=== PATIENT | female | born 1970 | race Caucasian/White ===

== ENCOUNTER 2018-11-22 17:00 | Inpatient (IN) ==
[2018-11-22 17:25] LABS: Hemoglobin 12.9 gm/dL (12.5-16.0); Mean Cell Volume 89.2 fl (78-100); Mean Corpuscular Hemoglobin 29.5 pg (27-31); Mean Corpuscular Hgb Conc 33.1 g/dl (32-36); Mean Platelet Volume 9.6 fl (8-12.5); Neutrophil # 10.6 K/mm3 (1.3-6.0); Neutrophil % 85.3 % (42-75.0); Platelet Count 275 K/mm3 (150-450); Red Blood Count 4.37 M/mm3 (4.2-5.4); Red Cell Distribution Width 12.3 % (11.5-14.0); White Blood Count 12.4 K/mm3 (4.0-10.5)
[2018-11-22 17:38] LABS: Anion Gap 11.4 mmol/L (6.8-13.8); BUN/Creatinine Ratio 16.4 (9.0-21.6); Bilirubin, Total 1.2 mg/dL (0.0-1.1); Ca. Corrected For Albumin 8.8 mg/dL (8.4-10.2); Calcium * 9.1 mg/dL (7.9-10.9); Carbon Dioxide 28.3 mmol/L (24-32.6); Potassium 3.7 mmol/L (3.4-4.6); Total Protein 8.6 gm/dL (6.2-8.2)
[2018-11-22] MEDS ORDERED: KETOROLAC TROMETHAMINE 30 MG/ML VIAL IV ONE (17:40)
[2018-11-22] MEDS ORDERED: NORMAL SALINE 1,000 ML IV PRN (17:40)
[2018-11-22] MEDS ORDERED: ONDANSETRON HCL/PF 2 MG/ML VIAL IV ONE (17:40)
--- NOTE | 2018-11-22 17:55 | ERNOTE ---
Abdominal HPI - Narrative Date of Service: 11/22/18 - General Chief Complaint: Abdominal Pain Time Seen by Provider: 11/22/18 17:30 Source: patient, RN notes reviewed, past records Exam Limitations: no limitations - Immun/Allergies/Home Medications Immunizatons: IMMUNIZATION HX Immunizations Up to Date Yes History of Influenza Vaccine No Hx Pneumococcal Vaccination No Allergies/Adverse Reactions: Allergies morphine Adverse Reaction (Mild, Verified 11/22/18 17:06) Nausea promethazine HCl [From Phenergan] Adverse Reaction (Mild, Verified 11/22/18 17:06) feel funny Home Medications: HOME MEDICATIONS Levonorgestrel [Mirena] 1 ea IY ONCE 06/08/18 [Last Taken Unknown] acetaminophen 500 mg tablet 1,000 mg PO Q6H PRN tab 08/31/18 [Last Taken Unknown] tramadol 50 mg tablet 50 mg PO Q6H PRN tab 08/31/18 [Last Taken Unknown] Prochlorperazine 25 mg RC BID PRN 11/22/18 [Last Taken Unknown] - History of Present Illness Narrative: Iban is a 48 year old female who presents to the ED for epigastric pain that began last night. She has a history of pancreatitis. She had an ERCP at [facility] on 08/13. She is to be seen for follow up on 12/04. She has also been vomiting today. She has taken Tramadol for pain without much improvement. This is usually effective for her. She has to follow a very low fat diet to avoid having symptoms. She does not believe that she ate anything yesterday that would have caused the current episode. Timing: constant Quality: moderate, aching Activities at Onset: none Prior Abdominal Problems: Present: similar symptoms Prior Treatment: Absent: recently seen Review of Systems - Review of Systems Constitutional: Present: malaise. Absent: fever, chills EYE: Present: no symptoms reported ENT: Present: no symptoms reported Respiratory: Absent: shortness of breath, cough Cardiology: Absent: chest pain, syncope Gastrointestinal/Abdominal: Present: nausea, vomiting, abdominal pain, eating less, drinking less. Absent: diarrhea, constipation Genitourinary: Present: no symptoms reported Musculoskeletal: Absent: muscle pain, joint pain Skin: Absent: rash, lesions Neurological: Absent: headache, dizziness/light-headedness Endocrine: Present: no symptoms reported Hematologic/Lymphatic: Absent: easy bruising, easy bleeding Psych: Present: no symptoms reported Medical History (Last Reviewed 11/22/18 @ 18:11 by Elida Peters NP) Chronic headaches Onset Date: ~01/08/15 HTN (hypertension) Breast lump Onset Date: ~11/26/15 History of pancreatitis Migraine Finger injury Onset Date: Unknown Tension headache Onset Date: ~01/10/15 Surgical History: Surgical History (Last Reviewed 11/22/18 @ 18:11 by Elida Peters NP) H/O wisdom tooth extraction Onset Date: Unknown History of cholecystectomy History of pancreatic surgery S/P ERCP Family History: Family History (Last Reviewed 11/22/18 @ 18:11 by Elida Peters NP) Mother Diabetes Lupus Father Cancer Son Celiac disease Social History: Preferred Language Turkmen Do you have any caodaism or No cultural preference? Smoking Status Never smoker Abuse History No History of abuse Psych History No pertinent hx Alcohol Use none Drug Use none (This Medical Record has been edited. Action required.) No Social History Section defined Physical Exam - Physical Exam General Appearance: Present: alert, mild distress, thin Head Exam: Present: normal inspection Eye Exam: Normal inspection: bilateral Neck: Present: normal inspection, nontender, supple Respiratory: Present: no respiratory distress, normal breath sounds, no accessory muscle use, lungs clear Cardiovascular/Chest: Present: regular rate, rhythm, no murmur Gastrointestinal/Abdominal: Present: normal bowel sounds, nondistended, soft, tenderness - moderate, epigastric Back Exam: Present: normal inspection, normal range of motion Extremity Exam: Present: normal inspection, no edema Neurological Exam: Present: alert, oriented, normal mood/affect, no motor/sensory deficits Skin Exam: Present: normal color, warm/dry Progress - Results and Orders Patient's Lab Results:: I have reviewed the patient's lab results. - Vital Signs Patient's Vital Signs:: I have reviewed the patient's vital signs. Vital Signs: Vital Signs 11/22/18 17:03 11/22/18 17:06 Temperature 37.0 C 37.0 C Pulse Rate 76 76 Respiratory Rate 17 17 Blood Pressure 152/83 H 152/83 H O2 Sat by Pulse Oximetry 100 100 - Progress/Reassessment Chief Complaint: Abdominal Pain Progress:: Improved Plan - Plan Plan: Amylase is over 3000, Lipase result is unavailable d/t the level being so high that the specimen has required dilution several times. WBC is mildly elevated. Toradol and Zofran were given with good results. She is getting her second liter of IV fluid. Dr. Russ was contacted. The patient will be admitted to observation. She will be NPO and receiving IV fluids, as well as medication as needed for pain/nausea. Departure Clinical Impression: Pancreatitis Qualifiers: Chronicity: acute Pancreatitis type: unspecified pancreatitis type Acute pancreatitis complication: unspecified Qualified Code(s): K85.90 - Acute pancreatitis without necrosis or infection, unspecified - Departure Disposition: Still a patient Condition: Stable
[2018-11-22 18:38] LABS: Urine Bilirubin Negative (NEGATIVE); Urine Blood Negative /ul (NEGATIVE); Urine Ketone 50 mg/dL (NEGATIVE); Urine Nitrite Negative (NEGATIVE); Urine Protein 15 mg/dL (NEGATIVE); Urine Specific Gravity 1.025 SP.GR. (1.005-1.010); Urine Urobilinogen Normal (NORMAL)
[2018-11-22 18:48] LABS: Urine Appearance Clear (CLEAR); Urine Bacteria 2+; Urine Color Yellow; Urine Mucus Moderate - 2+; Urine RBC None Seen /hpf (0-5); Urine WBC None Seen /hpf (0-5)
[2018-11-22] MEDS ORDERED: NORMAL SALINE 1,000 ML IV ONE (20:31)
[2018-11-22] MEDS ORDERED: KETOROLAC TROMETHAMINE 30 MG/ML VIAL IV PRN (22:40)
[2018-11-22] MEDS: NORMAL SALINE 1,000 ML IV PRN (23:04)
[2018-11-23] MEDS: NORMAL SALINE 1,000 ML IV PRN ×3 (05:28→18:56)
[2018-11-23 13:47] LABS: Hematocrit 32.3 % (37.0-47.0); Hemoglobin 10.8 gm/dL (12.5-16.0); Mean Cell Volume 90.5 fl (78-100); Mean Corpuscular Hemoglobin 30.3 pg (27-31); Mean Corpuscular Hgb Conc 33.4 g/dl (32-36); Mean Platelet Volume 10.2 fl (8-12.5); Neutrophil # 4.7 K/mm3 (1.3-6.0); Neutrophil % 75.6 % (42-75.0); Platelet Count 214 K/mm3 (150-450); Red Blood Count 3.57 M/mm3 (4.2-5.4); Red Cell Distribution Width 12.4 % (11.5-14.0); White Blood Count 6.3 K/mm3 (4.0-10.5)
[2018-11-23 13:53] LABS: Albumin * 3.1 gm/dl (3.4-5.0); Anion Gap 14.4 mmol/L (6.8-13.8); BUN/Creatinine Ratio 18.9 (9.0-21.6); Bilirubin, Total 0.9 mg/dL (0.0-1.1); Ca. Corrected For Albumin 8.7 mg/dL (8.4-10.2); Calcium * 8.3 mg/dL (7.9-10.9); Carbon Dioxide 21.2 mmol/L (24-32.6); Potassium 3.6 mmol/L (3.4-4.6); Total Protein 6.7 gm/dL (6.2-8.2)
--- NOTE | 2018-11-23 22:09 | HP ---
Chief Complaint - Chief Complaint Date of Service: 11/23/18 Time of Service: 09:00 Chief Complaint: Abdominal Pain History of Present Illness: Iban is a 48 yo female with known history of recurrent acute pancreatitis. She follows with Dr. Mortensen at [facility]. She follows a low fat diet religiously. She is well aware of when she has acute pancreatitis and often tries to manage flares at home. She felt like she was having a flare of pancreatitis, but pain was too the point she could no longer manage at home. She presented to the [facility] ER for evaluation. Pancreatic enzymes are elevated as expected. She has no known cause to this episode. Medical History (Last Reviewed 11/22/18 @ 23:40 by Reji Blackwell RN) Chronic headaches Onset Date: ~01/08/15 HTN (hypertension) Breast lump Onset Date: ~11/26/15 History of pancreatitis Migraine Finger injury Onset Date: Unknown Tension headache Onset Date: ~01/10/15 Surgical History: Surgical History (Last Reviewed 11/22/18 @ 23:41 by Reji Blackwell RN) H/O wisdom tooth extraction Onset Date: Unknown History of cholecystectomy History of pancreatic surgery S/P ERCP Family History: Family History (Last Reviewed 11/22/18 @ 23:41 by Reji Blackwell RN) Mother Diabetes Lupus Father Cancer Son Celiac disease Social History: Patient Lives/Resources With Spouse Utilized Occupation Administration Preferred Language Citizen Of [place] Do you have any jain or Yes: Tenriism cultural preference? Smoking Status Never smoker Have you smoked in the past 12 No months Do you dip or chew tobacco No Abuse History No History of abuse Psych History No pertinent hx Alcohol Use none Drug Use none (This Medical Record has been edited. Action required.) No Social History Section defined Review Of Systems (GEN) - Review of Systems Generalized/Overall Review: Absent: Weakness, Chills, Fever EENTM: Present: No Symptoms Reported Respiratory: Absent: Cough, Shortness of Breath Cardiac: Absent: Chest Pain, Edema Abdominal: Present: Nausea, Vomiting, Abdominal Pain. Absent: Hematemesis, Constipation, Diarrhea, Melena, Bright blood from rectum Genitourinary: Present: No Symptoms Reported Musculoskeletal: Present: Back Pain Neurological: Present: No Symptoms Reported Skin: Present: No Symptoms Reported Immunizations: IMMUNIZATION HX Immunizations Up to Date Yes History of Influenza Vaccine No Hx Pneumococcal Vaccination No Allergies/Adverse Reactions: Allergies Allergy/AdvReac Type Severity Reaction Status Date / Time morphine AdvReac Mild Nausea Verified 11/22/18 17:06 promethazine HCl AdvReac Mild feel funny Verified 11/22/18 17:06 [From Phenergan] Home Medications: HOME MEDICATIONS Levonorgestrel [Mirena] 1 ea IY ONCE 06/08/18 [Last Taken Unknown] acetaminophen 500 mg tablet 1,000 mg PO Q6H PRN tab 08/31/18 [Last Taken Unk nown] tramadol 50 mg tablet 50 mg PO Q6H PRN tab 08/31/18 [Last Taken Unknown] Prochlorperazine 25 mg RC BID PRN 11/22/18 [Last Taken Unknown] Exam - Exam Vital Signs: Vital Signs - Last Taken Temp 37.2 C 11/23/18 19:19 Pulse 73 11/23/18 19:19 Resp 16 11/23/18 19:19 BP 126/88 11/23/18 19:19 Pulse Ox 97 11/23/18 19:19 Constitutional: Present: Alert, Oriented x3, Cooperative ENT Exam: Present: hearing grossly normal Eye Exam: bilateral eye: normal inspection Respiratory: Present: lungs clear, normal breath sounds Cardiovascular/Chest: Present: regular rate, rhythm, no murmur Abdomen: Present: soft, nontender, nondistended, no rebound tenderness, no hepatospenomegaly, tender - Epigastric Extremity: Present: normal inspection Skin Exam: Present: normal color, warm/dry, no cyanosis Appearance: Present: appropriate appearance, appropriate insight Eye contact: Present: cooperative, good eye contact, normal speech Thoughts: Present: normal thought pattern, no apparent hallucination Diagnostic Studies: Abnormal Lab Results 11/23/18 11/23/18 Range/Units 13:15 13:15 RBC 3.57 L (4.2-5.4) M/mm3 Hgb 10.8 L (12.5-16.0) gm/dL Hct 32.3 L (37.0-47.0) % Neutrophils % 75.6 H (42-75.0) % Lymphocytes % 19.0 L (20-51) % Lymphocytes # 1.19 L (1.5-3.5) k/mm3 Carbon Dioxide 21.2 L (24-32.6) mmol/L Anion Gap 14.4 H (6.8-13.8) mmol/L Random Glucose 63 L D (70-110) mg/dL ALT 16 L (19-67) U/L Albumin 3.1 L (3.4-5.0) gm/dl Lipase 3914 H (73-393) U/L Laboratory Results WBC 6.3 K/mm3 (4.0-10.5) D 11/23/18 13:15 RBC 3.57 M/mm3 (4.2-5.4) L 11/23/18 13:15 Hgb 10.8 gm/dL (12.5-16.0) L 11/23/18 13:15 Hct 32.3 % (37.0-47.0) L 11/23/18 13:15 MCV 90.5 fl (78-100) 11/23/18 13:15 MCH 30.3 pg (27-31) 11/23/18 13:15 MCHC 33.4 g/dl (32-36) 11/23/18 13:15 RDW 12.4 % (11.5-14.0) 11/23/18 13:15 Plt Count 214 K/mm3 (150-450) 11/23/18 13:15 MPV 10.2 fl (8-12.5) 11/23/18 13:15 Immature Gran % (Auto) 0.20 % (0.001-0.429) 11/23/18 13:15 Immature Gran # (Auto) 0.01 K/mm3 (0.000-0.0310) 11/23/18 13:15 Neutrophils % 75.6 % (42-75.0) H 11/23/18 13:15 Lymphocytes % 19.0 % (20-51) L 11/23/18 13:15 Monocytes % 4.3 % (0.0-9) 11/23/18 13:15 Eosinophils % 0.6 % (0.0-3.0) 11/23/18 13:15 Basophils % 0.3 % (0.0-1.0) 11/23/18 13:15 Nucleated RBC % 0.0 k/mm3 (0-1) 11/23/18 13:15 Neutrophils # 4.7 K/mm3 (1.3-6.0) 11/23/18 13:15 Lymphocytes # 1.19 k/mm3 (1.5-3.5) L 11/23/18 13:15 Monocytes # 0.3 k/mm3 (0.0-1.0) 11/23/18 13:15 Eosinophils # 0.0 k/mm3 (0.0-0.7) 11/23/18 13:15 Absolute Basophils 0.0 k/mm3 (0.0-0.1) 11/23/18 13:15 Sodium 138 mmol/L (132-142) 11/23/18 13:15 Plasma Sodium 137 mmol/L (130-142) 11/23/18 13:15 Potassium 3.6 mmol/L (3.4-4.6) 11/23/18 13:15 Chloride 106 mmol/L (97-106) 11/23/18 13:15 Carbon Dioxide 21.2 mmol/L (24-32.6) L 11/23/18 13:15 Anion Gap 14.4 mmol/L (6.8-13.8) H 11/23/18 13:15 BUN 10 mg/dL (3-23) 11/23/18 13:15 Creatinine 0.53 mg/dL (0.4-1.4) 11/23/18 13:15 Est GFR (Non-Af Amer) 130 mL/min (60-130) D 11/23/18 13:15 BUN/Creatinine Ratio 18.9 (9.0-21.6) 11/23/18 13:15 Random Glucose 63 mg/dL (70-110) L D 11/23/18 13:15 Calcium 8.3 mg/dL (7.9-10.9) 11/23/18 13:15 Calcium Adj for Albumin 8.7 mg/dL (8.4-10.2) 11/23/18 13:15 Total Bilirubin 0.9 mg/dL (0.0-1.1) 11/23/18 13:15 AST 19 U/L (0-48) 11/23/18 13:15 ALT 16 U/L (19-67) L 11/23/18 13:15 Alkaline Phosphatase 65 U/L (50-170) 11/23/18 13:15 Total Protein 6.7 gm/dL (6.2-8.2) 11/23/18 13:15 Albumin 3.1 gm/dl (3.4-5.0) L 11/23/18 13:15 Amylase 3147 U/L (25-115) H 11/22/18 17:19 Lipase 3914 U/L (73-393) H 11/23/18 13:15 Urine Color Yellow 11/22/18 18:25 Urine Appearance Clear (CLEAR) 11/22/18 18:25 Urine pH 6.0 pH (5.0-7.0) 11/22/18 18:25 Ur Specific [place] 1.025 SP.GR. (1.005-1.010) 11/22/18 18:25 Urine Protein 15 mg/dL (NEGATIVE) H 11/22/18 18:25 Urine Glucose (UA) Negative mg/dL (NEGATIVE) 11/22/18 18:25 Urine Ketones 50 mg/dL (NEGATIVE) 11/22/18 18:25 Urine Blood Negative /ul (NEGATIVE) 11/22/18 18:25 Urine Nitrate Negative (NEGATIVE) 11/22/18 18:25 Urine Bilirubin Negative mg/dl (NEGATIVE) 11/22/18 18:25 Prot Sulfosalicylic Acd Negative mg/dL (0) 11/22/18 18:25 Urine Urobilinogen Normal EU/dl (NORMAL) 11/22/18 18:25 Ur Leukocyte Esterase Negative /ul (NEGATIVE) 11/22/18 18:25 Urine RBC None seen /hpf (0-5) 11/22/18 18:25 Urine WBC None seen /hpf (0-5) 11/22/18 18:25 Ur Epithelial Cells Trace /hpf (0-5) 11/22/18 18:25 Urine Bacteria 2+ (NONE) H 11/22/18 18:25 Urine Mucus Moderate - 2+ (NONE) H 11/22/18 18:25 Urine Culture Comments No culture indicated 11/22/18 18:25 Assessment/Plan - Narrative Narrative: Iban is a 48 yo female with known recurrent acute pancreatitis. She is having a flare at this time. Lipase today is 27,000. She will be made NPO and give IV fluids. Will monitor enzymes. She does not want narcotics for pain control. Expect >2 days to treat pancreatitis with IV fluids before she will be able to have her diet advanced and discharged. - Assessment/Plan (1) Pancreatitis Problem: Acute Qualifiers: Chronicity: acute Pancreatitis type: unspecified pancreatitis type Acute pancreatitis complication: unspecified Qualified Code(s): K85.90 - Acute pancreatitis without necrosis or infection, unspecified
[2018-11-24] MEDS: NORMAL SALINE 1,000 ML IV PRN ×2 (02:00→08:41)
[2018-11-24 10:04] LABS: Hematocrit 33.8 % (37.0-47.0); Hemoglobin 11.1 gm/dL (12.5-16.0); Mean Cell Volume 90.6 fl (78-100); Mean Corpuscular Hemoglobin 29.8 pg (27-31); Mean Corpuscular Hgb Conc 32.8 g/dl (32-36); Mean Platelet Volume 9.8 fl (8-12.5); Neutrophil # 2.7 K/mm3 (1.3-6.0); Neutrophil % 61.4 % (42-75.0); Platelet Count 240 K/mm3 (150-450); Red Blood Count 3.73 M/mm3 (4.2-5.4); Red Cell Distribution Width 12.5 % (11.5-14.0); White Blood Count 4.3 K/mm3 (4.0-10.5)
[2018-11-24 10:12] LABS: Albumin * 3.3 gm/dl (3.4-5.0); Anion Gap 11.3 mmol/L (6.8-13.8); Bilirubin, Total 0.8 mg/dL (0.0-1.1); Ca. Corrected For Albumin 8.9 mg/dL (8.4-10.2); Calcium * 8.7 mg/dL (7.9-10.9); Potassium 3.3 mmol/L (3.4-4.6); Total Protein 7.4 gm/dL (6.2-8.2)
--- NOTE | 2018-11-24 11:14 | DS ---
(1) Pancreatitis Problem: Acute Qualifiers: Chronicity: acute Pancreatitis type: unspecified pancreatitis type Acute pancreatitis complication: unspecified Qualified Code(s): K85.90 - Acute pancreatitis without necrosis or infection, unspecified Description of Stay: Iban is a 48 yo female that was admitted for acute on chronic pancreatitis. She has a long history of recurrent pancreatitis and follows with Dr. Mortensen at [facility]. She was admitted to inpatient and made NPO and given aggressive IV fluids. Lipase went from >20K down to 3k and then to 1k today. She is pain free and is very familiar with following a pancreatic diet at home. She request home discharge and as she is pain free and her enzymes have dropped significantly she may be discharged to home. Procedures Performed: none Results and Findings: Lab Pending Results 11/22/18 17:19: WBC 12.4 H, RBC 4.37, Hgb 12.9, Hct 39.0, MCV 89.2, MCH 29.5, MCHC 33.1, RDW 12.3, Plt Count 275, MPV 9.6, Immature Gran % (Auto) 0.40, Immature Gran # (Auto) 0.05 H, Neutrophils % 85.3 H, Lymphocytes % 9.0 L, Monocytes % 4.8, Eosinophils % 0.2, Basophils % 0.3, Nucleated RBC % 0.0, Neutrophils # 10.6 H, Lymphocytes # 1.11 L, Monocytes # 0.6, Eosinophils # 0.0, Absolute Basophils 0.0 11/22/18 17:19: Sodium 137, Plasma Sodium 137, Potassium 3.7, Chloride 101, Carbon Dioxide 28.3, Anion Gap 11.4, BUN 12, Creatinine 0.73, Est GFR (Non-Af Amer) 90, BUN/Creatinine Ratio 16.4, Random Glucose 108, Calcium 9.1, Calcium Adj for Albumin 8.8, Total Bilirubin 1.2 H, AST 20, ALT 20, Alkaline Phosphatase 74, Total Protein 8.6 H, Albumin 4.0, Amylase 3147 H, Lipase 67906 H 11/22/18 18:25: Urine Color Yellow, Urine Appearance Clear, Urine pH 6.0, Ur Specific [place] 1.025, Urine Protein 15 H, Urine Glucose (UA) Negative, Urine Ketones 50, Urine Blood Negative, Urine Nitrate Negative, Urine Bilirubin Nega tive, Prot Sulfosalicylic Acd Negative, Urine Urobilinogen Normal, Ur Leukocyte Esterase Negative, Urine RBC None seen, Urine WBC None seen, Ur Epithelial Cells Trace, Urine Bacteria 2+ H, Urine Mucus Moderate - 2+ H, Urine Culture Comments No culture indicated 11/23/18 13:15: WBC 6.3 D, RBC 3.57 L, Hgb 10.8 L, Hct 32.3 L, MCV 90.5, MCH 30.3, MCHC 33.4, RDW 12.4, Plt Count 214, MPV 10.2, Immature Gran % (Auto) 0.20, Immature Gran # (Auto) 0.01, Neutrophils % 75.6 H, Lymphocytes % 19.0 L, Monocytes % 4.3, Eosinophils % 0.6, Basophils % 0.3, Nucleated RBC % 0.0, Neutrophils # 4.7, Lymphocytes # 1.19 L, Monocytes # 0.3, Eosinophils # 0.0, Absolute Basophils 0.0 11/23/18 13:15: Sodium 138, Plasma Sodium 137, Potassium 3.6, Chloride 106, Carbon Dioxide 21.2 L, Anion Gap 14.4 H, BUN 10, Creatinine 0.53, Est GFR (Non- Af Amer) 130 D, BUN/Creatinine Ratio 18.9, Random Glucose 63 L D, Calcium 8.3, Calcium Adj for Albumin 8.7, Total Bilirubin 0.9, AST 19, ALT 16 L, Alkaline Phosphatase 65, Total Protein 6.7, Albumin 3.1 L, Lipase 3914 H 11/24/18 09:45: WBC 4.3 D, RBC 3.73 L, Hgb 11.1 L, Hct 33.8 L, MCV 90.6, MCH 29.8, MCHC 32.8, RDW 12.5, Plt Count 240, MPV 9.8, Immature Gran % (Auto) 0.50 H, Immature Gran # (Auto) 0.02, Neutrophils % 61.4, Lymphocytes % 30.0, Monocytes % 6.2, Eosinophils % 1.4, Basophils % 0.5, Nucleated RBC % 0.0, Neutrophils # 2.7, Lymphocytes # 1.30 L, Monocytes # 0.3, Eosinophils # 0.1, Absolute Basophils 0.0 11/24/18 09:45: Sodium 143 H, Plasma Sodium 143 H, Potassium 3.3 L, Chloride 106, Carbon Dioxide 29.0, Anion Gap 11.3, BUN 6, Creatinine 0.67, Est GFR (Non- Af Amer) 99 D, BUN/Creatinine Ratio 9.0, Random Glucose 103 D, Calcium 8.7, Calcium Adj for Albumin 8.9, Total Bilirubin 0.8, AST 16, ALT 20, Alkaline Phosphatase 60, Total Protein 7.4, Albumin 3.3 L, Lipase 1350 H Discharge Location: Home Disposition: Home self-care Condition: Good Discharge Activity: Activity as tolerated Discharge Diet: Resume usual diet Referrals: Alessio Mortensen MD [Non Staff Physicians] - (Keep scheduled appointment) Problem Oriented Discharge Instructions to Patient/Family: Acute Pancreatitis Additional Patient Instructions (free text): Appointment with pancreatic specialist, , on December 04. Complete Home Medications List: Complete Home Medication List: Levonorgestrel [Mirena] 1 ea IY ONCE 06/08/18 acetaminophen 500 mg tablet 1,000 mg PO Q6H PRN tab 08/31/18 tramadol 50 mg tablet 50 mg PO Q6H PRN tab 08/31/18 Prochlorperazine 25 mg RC BID PRN 11/22/18
[2018-11-24 11:47] VITALS: BP 126/86
== END 2018-11-24 11:53 | disposition home or self-care (01) | DRG 440 ==
LOC: ER 17:00 → MS 17:00
PROVIDERS: ADMIT Family Medicine; ATTEND Family Medicine
CPT/HCPCS: 36415; 80053; 81001; 82150; 82784; 83520; 83690; 85025; 96361; 96374; 96375; 99285; J2405